=== PATIENT | male | born 1995 | race Caucasian/White ===

== ENCOUNTER 2016-11-04 20:50 | Emergency (ER) | payer MEDICAID ==
[~2016-11-04] VITALS: Ht 170.2 cm; Wt 53.4 kg
[2016-11-04 21:02] VITALS: BP 117/76
== END 2016-11-04 22:30 | disposition home or self-care (01) ==
LOC: ED 22:00
DX: S62.324A Displaced fracture of shaft of fourth metacarpal bone, right hand, initial encounter for closed fracture (principal); S62.326A Displaced fracture of shaft of fifth metacarpal bone, right hand, initial encounter for closed fracture; X58.XXXA Exposure to other specified factors, initial encounter; Y93.89 Activity, other specified; Y92.410 Unspecified street and highway as the place of occurrence of the external cause; Y99.8 Other external cause status
CPT/HCPCS: 29125

== ENCOUNTER 2017-01-10 15:49 | Emergency (ER) | payer MEDICAID ==
[~2017-01-10] VITALS: Ht 170.2 cm; Wt 51.6 kg
[2017-01-10 15:52] VITALS: BP 114/75
[2017-01-10] MEDS ORDERED: CEFTRIAXONE 250 MG ONE (16:15)
[2017-01-10] MEDS ORDERED: AZITHROMYCIN 500 MG TABLET ONE (16:15)
[2017-01-10] MEDS ORDERED: metroNIDAZOLE 500 MG TABLET PO ONE (16:30)
[2017-01-10] MEDS ORDERED: CEFTRIAXONE 250 MG IM ONE (16:30)
[2017-01-10] MEDS ORDERED: AZITHROMYCIN 500 MG TABLET PO ONE (16:30)
== END 2017-01-10 17:12 | disposition home or self-care (01) ==
LOC: ED 17:06
DX: A59.9 Trichomoniasis, unspecified (principal)
CPT/HCPCS: 87491; 87591; 96372; 99284; J0696

== ENCOUNTER 2017-04-13 20:13 | Emergency (ER) | payer MEDICAID ==
[~2017-04-13] VITALS: Ht 170.2 cm; Wt 53.6 kg
[2017-04-13 21:56] VITALS: BP 110/78
== END 2017-04-13 21:58 | disposition home or self-care (01) ==
LOC: ED 21:52
DX: R07.89 Other chest pain (principal)
CPT/HCPCS: 36415; 71046; 80047; 93005; 99285

== ENCOUNTER 2020-04-21 12:04 | Emergency (ER) | payer SELFPAY ==
[~2020-04-21] VITALS: Ht 170.2 cm; Wt 50.0 kg
--- NOTE | 2020-04-21 12:36 | NUR ---
pt in bed with no signs or symptoms of acute distress noted respirations even and unlabored, provider at bedside to assess.
[2020-04-21] MEDS ORDERED: HYDROcodone/APAP 5/325 TABLET ONE (12:45)
[2020-04-21] MEDS ORDERED: HYDROcodone/APAP 5/325 TABLET PO ONE (13:00)
[2020-04-21 13:50] VITALS: BP 122/89
== END 2020-04-21 14:05 | disposition home or self-care (01) ==
LOC: ED 13:46
DX: S03.2XXA Dislocation of tooth, initial encounter (principal); S30.0XXA Contusion of lower back and pelvis, initial encounter; S00.83XA Contusion of other part of head, initial encounter; Y04.8XXA Assault by other bodily force, initial encounter; Y93.89 Activity, other specified; Y92.098 Other place in other non-institutional residence as the place of occurrence of the external cause; Y99.8 Other external cause status
CPT/HCPCS: 70450; 70486; 72220; 99285

== ENCOUNTER 2020-11-06 20:14 | Emergency (ER) | payer SELFPAY ==
[~2020-11-06] VITALS: Ht 170.2 cm; Wt 52.2 kg
[2020-11-06 20:20] VITALS: BP 114/82
== END 2020-11-06 21:00 | disposition home or self-care (01) ==
LOC: ED 20:40
DX: K02.9 Dental caries, unspecified (principal); R11.10 Vomiting, unspecified; F17.200 Nicotine dependence, unspecified, uncomplicated
CPT/HCPCS: 99283; Q0162